=== PATIENT | male | born 1975 | race Caucasian/White ===

== ENCOUNTER 2022-08-30 11:37 | Emergency (ER) | payer SELFPAY ==
[~2022-08-30] VITALS: Ht 172.7 cm; Wt 99.8 kg
[2022-08-30 11:50] VITALS: BP_SYST 163
[2022-08-30] MEDS ORDERED: VIS25 PO (12:43)
[2022-08-30 12:57] VITALS: BP_SYST 136
== END 2022-08-30 13:02 | disposition home or self-care (01) ==
LOC: SED 11:37
DX: F41.9 Anxiety disorder, unspecified (principal); R06.02 Shortness of breath; Z79.899 Other long term (current) drug therapy
CPT/HCPCS: 93005; 99283